=== PATIENT | female | born 1990 | race Caucasian/White ===

== ENCOUNTER 2016-08-04 15:05 | Emergency (ER) | payer OTHER ==
[2016-08-04 15:30] VITALS: BP 129/66
--- NOTE | 2016-08-04 16:06 | UC ---
UC General HPI - HPI Summary HPI Summary: complaint of feeling nauseated in the mornings breast tenderness for the past week fatigued more often LMP 06/24/16 good appetite and normal elimination - History of Current Complaint Chief Complaint: UCGeneralIllness Stated Complaint: N/V Time Seen by Provider: 08/04/16 16:01 Hx Obtained From: Patient - Allergy/Home Medications Allergies/Adverse Reactions: Allergies Allergy/AdvReac Type Severity Reaction Status Date / Time Adhesive Tape Allergy Rash Verified 08/04/16 15:30 PMH/Surg Hx/FS Hx/Imm Hx Previously Healthy: Yes Endocrine History Of: Denies: Diabetes, Thyroid Disease Cardiovascular History Of: Denies: Cardiac Disorders, Hypertension Respiratory History Of: Denies: COPD, Asthma GI/ History Of: Denies: Ulcer Neurological History Of: Reports: Migraine - Surgical History Surgical History: Yes Surgery Procedure, Year, and Place: WISDOM TEETH - Family History Known Family History: Positive: None - non contributory, Unknown Negative: Seizure Disorder - Social History Lives: With Family Alcohol Use: None Substance Use Type: None, Other Smoking Status (MU): Never Smoked Tobacco - Immunization History Most Recent Influenza Vaccination: 2012 Most Recent Tetanus Shot: 04/02/14 Most Recent Pneumonia Vaccination: n/a Review of Systems Constitutional: Fatigue Skin: Negative Eyes: Negative ENT: Negative Respiratory: Negative Cardiovascular: Negative Gastrointestinal: Other - nausea Genitourinary: Negative Motor: Negative Neurovascular: Negative Musculoskeletal: Negative Neurological: Negative Psychological: Negative All Other Systems Reviewed And Are Negative: Yes Physical Exam Triage Information Reviewed: Yes Appearance: No Pain Distress, Well-Nourished Vital Signs: Initial Vital Signs Temp 99.9 F 08/04/16 15:27 Pulse 77 08/04/16 15:27 Resp 18 08/04/16 15:27 BP 129/66 08/04/16 15:27 Pulse Ox 99 08/04/16 15:27 Vital Signs Reviewed: Yes Eye Exam: Normal Eyes: Positive: Conjunctiva Clear ENT: Positive: Normal ENT inspection Neck: Positive: No Lymphadenopathy Respiratory: Positive: Lungs clear, Normal breath sounds, No respiratory distress Cardiovascular: Positive: RRR, No Murmur, Pulses Normal Abdomen Description: Positive: Nontender, Soft Bowel Sounds: Positive: Present Musculoskeletal: Positive: No Edema Neurological: Positive: Alert Skin Exam: Normal Course/Dx - Course Course Of Treatment: POONAM 03/31/16. positive test. will rx for vitamin and refer to [facility] - Differential Dx - Multi-Symptom Provider Diagnoses: positive test Discharge - Discharge Plan Condition: Stable Disposition: HOME Prescriptions: Vit W/ Ferrous Fumara [ Complete] 1 tab PO DAILY #30 tab Patient Education Materials: (ED) Referrals: No Primary Care Phys,NOPCP [Primary Care Provider] - Ginette Anthony MD [Medical Doctor] - Additional Instructions: You have tested positive for start your vitamin please review your discharge instructions please contact your [facility] Dr Anthony for further medical care
== END 2016-08-04 16:12 | disposition home or self-care (01) ==
LOC: UCEAST 15:05
DX: Z34.00 Encounter for supervision of normal first pregnancy, unspecified trimester (principal)
CPT/HCPCS: 81025; 99212; G0463

== ENCOUNTER 2016-09-13 20:21 | Emergency (ER) | payer OTHER ==
--- NOTE | 2016-09-13 21:25 | ED ---
Abdominal Pain/Female - HPI Summary HPI Summary: 26 female presents complaining of lower left abdominal pain that radiates into her left flank and mid-pelvic region. Patient states she is ~3 months . She has not been seen by OB however was seen at [facility] where she found out she was via urine preg test back in August. Patient describes the pain to be sharp constant and effecting her daily activities. It started this morning upon waking up. She has not taken anything for it. Says the pain is worse with movement, walking and standing. But feels better when she lays down. Denies nausea, vomiting, hematuria, hematochezia, melena and vaginal discharge. States she has been urinating frequently but denies burning, itching and urgency. Admits to having trouble with bowel movements, her LBM being Tuesday, which was normal. She states she is passing gas however sits on the toilet and is unable have a bowel movement. No fever/chills, diarrhea or recent illness. Has been eating and drinking normally without issue. No PMHx. - History of Current Complaint Chief Complaint: EDAbdPain Stated Complaint: ABD PAIN/3 MONTHS Time Seen by Provider: 09/13/16 20:39 Hx Obtained From: Patient Hx Last Menstrual Period: 06/24/16 ?: Yes Onset/Duration: Sudden Onset Timing: Hours Severity Initially: Moderate Severity Currently: Severe Pain Intensity: 8 Pain Scale Used: 0-10 Numeric Location: Discrete At: LLQ Radiates to: Back - left, Flank - left, Other - suprapubic Character: Sharp Aggravating Factor(s): Movement Alleviating Factor(s): Position - laying down Associated Signs and Symptoms: Positive: Back Pain, Constipation. Negative: Diaphoresis, Fever, Blood in Stool, Urinary Symptoms, Decreased Appetite, Vaginal Bleeding, Vaginal Discharge, Nausea, Vomiting, Diarrhea Allergies/Adverse Reactions: Allergies Allergy/AdvReac Type Severity Reaction Status Date / Time Adhesive Tape Allergy Rash Verified 08/04/16 15:30 PMH/Surg Hx/FS Hx/Imm Hx Endocrine/Hematology History: Denies: Hx Diabetes, Hx Thyroid Disease Cardiovascular History: Denies: Hx Hypertension Respiratory History: Denies: Hx Asthma, Hx Chronic Obstructive Pulmonary Disease (COPD) GI History: Denies: Hx Ulcer Neurological History: Reports: Hx Migraine - Surgical History Surgery Procedure, Year, and Place: WISDOM TEETH Infectious Disease History: Yes Infectious Disease History: Reports: Hx of Known/Suspected MRSA - MRSA IN URINE Denies: Hx Hepatitis, Hx Human Immunodeficiency Virus (HIV), Traveled Outside the [place] in Last 30 Days - Family History Known Family History: Positive: None - non contributory, Unknown Negative: Seizure Disorder - Social History Alcohol Use: None Substance Use Type: Reports: None, Other Hx Tobacco Use: No Smoking Status (MU): Never Smoked Tobacco Review of Systems Constitutional: Negative Eyes: Negative ENT: Negative Cardiovascular: Negative Respiratory: Negative Positive: Abdominal Pain Positive: frequency Musculoskeletal: Negative Skin: Negative Neurological: Negative Psychological: Normal All Other Systems Reviewed And Are Negative: Yes Physical Exam Triage Information Reviewed: Yes Vital Signs On Initial Exam: Initial Vitals Temp Pulse Resp BP Pulse Ox 98.9 F 81 18 123/52 100 09/13/16 20:36 09/13/16 20:36 09/13/16 20:36 09/13/16 20:36 09/13/16 20:36 Vital Signs Reviewed: Yes Appearance: Positive: Well-Appearing, No Pain Distress, Well-Nourished Skin: Positive: Warm, Skin Color Reflects Adequate Perfusion, Dry Head/Face: Positive: Normal Head/Face Inspection Eyes: Positive: Conjunctiva Clear ENT: Positive: Hearing grossly normal, Pharynx normal Dental: Negative: Cervical Lymphadenopathy Neck: Positive: Supple, Nontender Respiratory/Lung Sounds: Positive: Clear to Auscultation, Breath Sounds Present Cardiovascular: Positive: Normal, RRR, Pulses are Symmetrical in both Upper and Lower Extremities Abdomen Description: Positive: No Organomegaly, Soft, CVA Tenderness (L), Other : - tednerness on palpation of LLQ and suprapubic. Negative: Bruit, CVA Tenderness (R), Distended, Guarding, McBurney's Point Tenderness, Peritoneal Signs Bowel Sounds: Positive: Present Pelvic Exam: Negative: active bleeding Musculoskeletal: Positive: Normal, Strength/ROM Intact Neurological: Positive: Normal, Sensory/Motor Intact, Alert, Oriented to Person Place, Time Psychiatric: Positive: Normal Diagnostics - Vital Signs Vital Signs Temp Pulse Resp BP Pulse Ox 09/13/16 20:36 98.9 F 81 18 123/52 100 - Laboratory Result Diagrams: 09/13/16 22:15 09/13/16 22:15 Lab Statement: Any lab studies that have been ordered have been reviewed, and results considered in the medical decision making process. - Ultrasound No standard instances Ultrasound Interpretation: No Acute Changes - IUP AT 11 WEEKS 6 DAYS. NO SONOGRAPHIC ABNORMALITY IS DETECTED. Ultrasound Interpretation Completed By: Radiologist Re-Evaluation - Re-Evaluation First Eval Re-Evaluation Time: 23:15 Change: Improved - patient states she feels better after medication and since arrival. pain has decreased Abdominal Pain Fem Course/Dx - Course Course Of Treatment: PE findings and history appear to be constipation. Abdominal US and basic lab work was ordered to confirm and viability. Urinalysis obtained. Rule-out etiologies of ectopic , diverticulitis, ovarian torsion, uinary tract infection etc. All labs were unremarkable. -0- 1 without any prior complications besides nausea. Given Tylenol and Metamucil to help with pain and constipation. Told to continue Metamucil at home as needed for constipation. - Diagnoses Differential Diagnosis: Positive: Constipation, Diverticulitis, Ectopic , , Urinary Tract Infection Provider Diagnoses: Constipation during in first trimester, Abdominal pain, left lower quadrant Discharge - Discharge Plan Condition: Stable Disposition: HOME Patient Education Materials: Constipation (ED), High Fiber Diet (ED) Referrals: No Primary Care Phys,NOPCP [Primary Care Provider] - [facility] [place] [facility]FERRAL [Outside] Additional Instructions: Be sure to eat a high fiber diet (foods with high fiber is attached) and plenty of fluids to avoid constipation. You can take Metamucil as needed for constipation. If symptoms worsen or new symptoms develop such as bleeding, increasing pain, fever/chills please seek medical attention promptly. Follow-up with PCP/OBGYN.
--- NOTE | 2016-09-13 21:54 | RAD ---
INDICATION: Early with abdominal pain COMPARISON: None TECHNIQUE: Transabdominal scans the pelvis were performed for limited evaluation FINDINGS: There is a single intrauterine gestation. cardiac activity is documented at 155 bpm. The crown-rump length corresponds to an 11 week 6 day gestation. The estimated date of confinement is March 31, 2017. The ovaries appear normal. The right ovary measures 3.0 x 1.7 x 1.4 cm and the left 3.6 x 2.0 x 1.2 cm. There are no findings of torsion. IMPRESSION: IUP AT 11 WEEKS 6 DAYS. NO SONOGRAPHIC ABNORMALITY IS DETECTED..
[2016-09-13 22:29] LABS: Hematocrit 39 % (35-47); Hemoglobin 13.6 g/dl (12.0-16.0); Mean Corpuscular HGB Conc 35 g/dl (31-36); Mean Corpuscular Hemoglobin 30 pg (27-31); Mean Corpuscular Volume 85 fL (80-97); Mean Platelet Volume 8 um3 (7.4-10.4); Red Blood Count 4.58 10^6/ul (4.0-5.4); Red Cell Distribution Width 14 % (10.5-15); White Blood Count 6.3 10^3/ul (3.5-10.8)
[2016-09-13] MEDS ORDERED: Acetaminophen TAB* 325 MG PO ONE (22:33)
[2016-09-13] MEDS ORDERED: Psyllium PAK PO ONE (22:33)
[2016-09-13 22:35] LABS: Urine Bacteria 1+ (Absent); Urine Bilirubin Negative (Negative); Urine Glucose Negative (Negative); Urine Nitrite Negative (Negative)
[2016-09-13 22:44] LABS: Albumin 3.8 g/dL (3.2-5.2); BUN/Creatinine Ratio 19.3 (8-20); C Reactive Protein 1.58 mg/L (< 5.00); Calcium 9.4 mg/dL (8.6-10.3); EGFR African American 166.2 (>60); EGFR Non-African American 129.2 (>60); Globulin 3.2 g/dL (2-4); Potassium 4.1 mmol/L (3.5-5.0); Total Bilirubin 0.4 mg/dL (0.2-1.0)
[2016-09-13 23:32] VITALS: BP 122/66
== END 2016-09-13 23:31 | disposition home or self-care (01) ==
LOC: ED 20:21
DX: R10.32 Left lower quadrant pain (principal); K59.00 Constipation, unspecified; Z34.90 Encounter for supervision of normal pregnancy, unspecified, unspecified trimester; Z3A.11 11 weeks gestation of pregnancy
CPT/HCPCS: 36415; 76815; 80053; 81003; 81015; 83690; 84702; 85025; 86140; 87086; 99282; A9270-GY

== ENCOUNTER 2017-03-19 23:34 | Inpatient (IN) | payer OTHER ==
[2017-03-20 00:01] LABS: Hematocrit 35 % (35-47); Hemoglobin 11.7 g/dl (12.0-16.0); Mean Corpuscular HGB Conc 33 g/dl (31-36); Mean Corpuscular Hemoglobin 27 pg (27-31); Mean Corpuscular Volume 81 fL (80-97); Mean Platelet Volume 11 um3 (7.4-10.4); Red Blood Count 4.33 10^6/ul (4.0-5.4); Red Cell Distribution Width 16 % (10.5-15); White Blood Count 8.1 10^3/ul (3.5-10.8)
[2017-03-20 00:05] LABS: Comments Flag Yes
[2017-03-20] MEDS ORDERED: Oxytocin in LR* 20 UNITS/1,000 ML BAG IVPB ONE (00:34)
[2017-03-20] MEDS ORDERED: Witch Hazel PAD* JAR TOPICAL PRN (01:15)
[2017-03-20] MEDS ORDERED: Dibucaine 1% 28.35 GM TUBE PR PRN (01:15)
[2017-03-20] MEDS ORDERED: Glycerin ADULT SUPP PR PRN (01:15)
[2017-03-20] MEDS ORDERED: Zolpidem TAB* 5 MG PO PRN (01:15)
[2017-03-20] MEDS ORDERED: Misoprostol TAB* 200 MCG PR ONE (01:16)
[2017-03-20] MEDS ORDERED: Oxytocin in LR* 20 UNITS/1,000 ML BAG IVPB SCH (02:00)
[2017-03-20] MEDS ORDERED: Ammonia Inhalant* 1 EA AMP ONE (02:52)
[2017-03-20] MEDS: Ibuprofen TAB* 600 MG PO PRN ×3 (04:22→16:16)
[2017-03-20] MEDS ORDERED: Simethicone CHEW TAB* 80 MG PO SCH (08:30)
[2017-03-20] MEDS: Docusate CAP* 100 MG PO SCH ×3 (10:19→20:05)
[2017-03-20] MEDS: Acetaminophen TAB* 325 MG PO PRN (20:05)
[2017-03-21] MEDS: Ibuprofen TAB* 600 MG PO PRN ×4 (02:13→23:49)
[2017-03-21] MEDS: Acetaminophen TAB* 325 MG PO PRN ×3 (02:13→21:34)
[2017-03-21 07:13] LABS: Hematocrit 24 % (35-47); Hemoglobin 7.8 g/dl (12.0-16.0); Mean Corpuscular HGB Conc 33 g/dl (31-36); Mean Corpuscular Hemoglobin 27 pg (27-31); Mean Corpuscular Volume 82 fL (80-97); Mean Platelet Volume 10 um3 (7.4-10.4); Red Blood Count 2.87 10^6/ul (4.0-5.4); Red Cell Distribution Width 16 % (10.5-15); White Blood Count 6.2 10^3/ul (3.5-10.8)
[2017-03-21 07:17] LABS: Add Diff/Slide Review? Slide Review Added; Comments Flag Yes
[2017-03-21] MEDS: Docusate CAP* 100 MG PO SCH ×3 (09:11→20:25)
[2017-03-21] MEDS: Ferrous Gluconate TAB* 324 MG TAB PO SCH ×2 (09:11→20:25)
[2017-03-21] MEDS ORDERED: RHO D Immune Globulin (HUMAN)* 300 MCG = 1,500 I.U. INJ IM ONE (21:05)
[2017-03-22] MEDS: Ibuprofen TAB* 600 MG PO PRN ×2 (06:16→12:54)
[2017-03-22 08:00] VITALS: BP 125/63
[2017-03-22] MEDS: Ferrous Gluconate TAB* 324 MG TAB PO SCH (10:53)
[2017-03-22] MEDS: Docusate CAP* 100 MG PO SCH (10:53)
== END 2017-03-22 12:58 | disposition home or self-care (01) | DRG 560 ==
LOC: MCHOBOUT 23:34 → MCHOB 23:55
PROVIDERS: ADMIT Obstetrics & Gynecology; ATTEND Obstetrics & Gynecology
PROC: 10E0XZZ Delivery of Products of Conception, External Approach (ICD-10-PCS; principal; 2017-03-20)
PROC: 10907ZC Drainage of Amniotic Fluid, Therapeutic from Products of Conception, Via Natural or Artificial Opening (ICD-10-PCS; 2017-03-20)
PROC: 0KQM0ZZ Repair Perineum Muscle, Open Approach (ICD-10-PCS; 2017-03-20)
DX: O60.23X0 Term delivery with preterm labor, third trimester, not applicable or unspecified (principal); O99.824 Streptococcus B carrier state complicating childbirth; O70.1 Second degree perineal laceration during delivery; Z3A.38 38 weeks gestation of pregnancy; Z37.0 Single live birth
CPT/HCPCS: 36415; 85025; 85027; 85060; 85461; 86850; 86900; 86901; A9270-GY; J2790

== ENCOUNTER 2017-05-05 07:48 | Day surgery (SDC) | payer OTHER ==
[~2017-05-05 07:48] MED LIST: Buffered Lidocaine 0.9% SYRIN* 5 ML/SYR SYRINGE INTRADERM ONE; Sodium Citrate/Citric Acid* 15 ML UDC PO ONE
[2017-05-05] MEDS ORDERED: Buffered Lidocaine 0.9% SYRIN* 5 ML/SYR SYRINGE ONE (08:02)
[2017-05-05] MEDS ORDERED: Sodium Citrate/Citric Acid* 15 ML UDC ONE (08:02)
[2017-05-05] MEDS ORDERED: Cisatracurium* 2 MG/ML MDV 5 ML ONE (08:52)
[2017-05-05] MEDS ORDERED: Lidocaine 2% PF * 5 ML VIAL ONE (08:52)
[2017-05-05] MEDS ORDERED: Propofol* 10 MG/ML 20 ML BTL IV PUSH ONE (08:52)
[2017-05-05] MEDS ORDERED: fentaNYL* 50 MCG/ML 2 ML VIAL (100 MCG VIAL) ONE (08:53)
[2017-05-05] MEDS ORDERED: Bupivacaine 0.25% SDV* 30 ML ONE (08:53)
[2017-05-05] MEDS ORDERED: Dexamethasone IV* 4 MG/ML 1 ML (4 MG) ONE (09:19)
[2017-05-05] MEDS ORDERED: Glycopyrrolate IV* 0.2 MG/ML 1 ML VIAL ONE (09:25)
[2017-05-05] MEDS ORDERED: Neostigmine Methylsulfate* 2 MG/2 ML SYRINGE ONE (09:25)
[2017-05-05] MEDS ORDERED: Ondansetron INJ* 2 MG/ML VIAL IV PRN (09:27)
[2017-05-05] MEDS ORDERED: fentaNYL* 50 MCG/ML 2 ML VIAL (100 MCG VIAL) IV PRN (09:27)
[2017-05-05] MEDS ORDERED: oxyCODONE/Acetamin 5/325 MG* TAB ONE ×2 (10:24→13:06)
[2017-05-05 13:52] VITALS: BP 118/63
--- NOTE | 2017-05-05 16:58 | OP ---
DATE OF OPERATION: 05/05/17 [facility] DATE OF : 89 SURGEON: Adelaide Sterling MD ANESTHESIOLOGIST: Kasi Jenkins DO ANESTHESIA: General endotracheal. PRE-OP DIAGNOSIS: Satisfied parity. POST-OP DIAGNOSIS: Satisfied parity. OPERATIVE PROCEDURE: Laparoscopic bilateral tubal ligation with bipolar. INDICATIONS: The patient is a 26-year-old, 2, para 2, approximately 2 months , status post her second vaginal delivery. The patient had expressed a strong desire for permanent sterilization during her and signed the sterilization consent for Medicaid. She was extensively counseled regarding the procedure as well as her other long-term contraception options and she desired to proceed. Consent was signed. ESTIMATED BLOOD LOSS: 50 cc. URINE OUTPUT: 50 cc. IV FLUIDS: 800 cc lactated Ringer's. MATERIALS TO LAB: None. FINDINGS: Normal-appearing pelvis with normal uterus, fallopian tubes, ovaries , and appendix. There appeared to be good coagulation of over 50% of the fallopian tube on both sides. Of note, the Hulka tenaculum that was placed into the cervix appeared to initiate some significant bleeding from inside the canal. This seemed to improve with some uterine pressure, but virtually all of the estimated blood loss was from the cervical bleeding. DESCRIPTION OF PROCEDURE: The risks, benefits, and alternatives were described to the patient, and informed consent was obtained. The patient was taken to the operating room with IV running where general anesthesia was induced and found to be adequate. The patient was prepped and draped in the normal sterile fashion in the low lithotomy position in [facility]. A time-out was performed. The bladder was emptied. A bivalve speculum was placed in the vagina and a Hulka tenaculum was easily placed through the cervix into the uterus. The speculum was then removed. Attention was then turned to the abdomen. 0.25% Marcaine was then injected into the skin of the umbilicus as well as 2-cm above the pubic symphysis. A 5 mm skin incision was made with a scalpel in the umbilicus. A bladeless 5mm trocar was then inserted through the incision and into the peritoneal cavity under direct visualization without difficulty. The skin was elevated using penetrating towel clamps. Once the trocar was in the abdominal cavity, the abdomen was insufflated with carbon dioxide gas to a maximum pressure of 15 mmHg. Using the camera, the area below the trocar placement was carefully inspected and there was no evidence of trauma or bleeding. The patient was placed in the Trendelenburg position. A second incision 5mm incision was placed 2 cm above the pubic symphysis in a transverse fashion. A 5mm blunt trocar was also placed through this incision and into the abdominal cavity without difficulty. Using the Hulka tenaculum for manipulation , the uterus was elevated and well visualized. The structures appeared normal. The Kleppinger bipolar device was prepared and coated with a nonstick gel. The Kleppinger was then placed on the patient's right fallopian tube in the mid isthmic portion and at least 4cm of the tube was fully coagulated with resistance observed. The same was then performed on the patient's left side, again without difficulty and with excellent hemostasis. The case was then completed. The trocars were removed from the abdomen and the gas was allowed to escape. The skin was reapproximated using 4-0 Monocryl in a subcuticular stitch, and the incisions were then overlaid with Dermaflex skin adhesive. The tenaculum was then removed from the cervix as well. It was noted that the patient had a fairly significant amount of bleeding from the cervix compared to the usual. The speculum was replaced and the bleeding was coming from the cervical os, not the tenaculum site. Pressure was held with a sponge stick for a couple minutes, and bleeding slowed significantly. The speculum was then removed. The patient was returned to the supine position and allowed to awaken. The patient tolerated the procedure well. Sponge, lap, and needle counts were correct x2. [id number]/[facility] #: [id number] SHON
== END 2017-05-05 13:49 | disposition home or self-care (01) ==
LOC: OR 07:48
PROVIDERS: ATTEND Obstetrics & Gynecology
DX: Z30.2 Encounter for sterilization (principal)
CPT/HCPCS: 81025; A9270-GY; J1100; J2704; J3010

== ENCOUNTER 2019-03-03 20:41 | Emergency (ER) | payer OTHER ==
[2019-03-03 20:57] VITALS: BP 110/68
--- NOTE | 2019-03-03 21:17 | UC ---
Ear Complaint HPI - HPI Summary HPI Summary: right ear pain worsening over past 7-10 days - History of Current Complaint Chief Complaint: UCEar Stated Complaint: EAR PAIN Time Seen by Provider: 03/03/19 21:05 Hx Obtained From: Patient Hx Last Menstrual Period: tubal ligation ?: No Onset/Duration: Gradual Onset, Lasting Days, Still Present Pain Intensity: 8 Pain Scale Used: 0-10 Numeric Aggravating Factors: Nothing Alleviating Factors: Nothing - Allergies/Home Medications Allergies/Adverse Reactions: Allergies Allergy/AdvReac Type Severity Reaction Status Date / Time Adhesive Tape Allergy Rash Verified 03/03/19 20:57 PMH/Surg Hx/FS Hx/Imm Hx Previously Healthy: Yes - Surgical History Surgical History: Yes Surgery Procedure, Year, and Place: WISDOM TEETH - Family History Known Family History: Positive: None - non contributory, Unknown Negative: Seizure Disorder - Social History Occupation: Works From/At Home Lives: With Family Alcohol Use: None Substance Use Type: None Smoking Status (MU): Never Smoked Tobacco - Immunization History Most Recent Influenza Vaccination: 2012 Most Recent Tetanus Shot: 04/02/14 Most Recent Pneumonia Vaccination: n/a Review of Systems All Other Systems Reviewed And Are Negative: Yes Constitutional: Positive: Negative Skin: Positive: Negative Eyes: Positive: Negative ENT: Positive: Ear Ache - right Respiratory: Positive: Negative Cardiovascular: Positive: Negative Gastrointestinal: Positive: Negative Genitourinary: Positive: Negative Motor: Positive: Negative Neurovascular: Positive: Negative Musculoskeletal: Positive: Negative Neurological: Positive: Negative Psychological: Positive: Negative Is Patient Immunocompromised?: No Physical Exam Triage Information Reviewed: Yes Appearance: Well-Appearing, No Pain Distress, Well-Nourished Vital Signs: Initial Vital Signs Temp 98.7 F 03/03/19 20:55 Pulse 65 03/03/19 20:55 Resp 18 03/03/19 20:55 BP 110/68 03/03/19 20:55 Pulse Ox 100 03/03/19 20:55 Vital Signs Reviewed: Yes Eye Exam: Normal ENT Exam: Normal ENT: Positive: Normal ENT inspection, Hearing grossly normal, Pharynx normal, TMs normal, Uvula midline, Other - right canal red. Negative: Nasal congestion , Nasal drainage, Dental tenderness, Sinus tenderness Dental Exam: Normal Neck exam: Normal Neck: Positive: Supple, Nontender Respiratory Exam: Normal Respiratory: Positive: Chest non-tender, Lungs clear, Normal breath sounds, No respiratory distress, No accessory muscle use Cardiovascular Exam: Normal Cardiovascular: Positive: RRR, No Murmur, Pulses Normal, Brisk Capillary Refill Musculoskeletal Exam: Normal Musculoskeletal: Positive: Strength Intact, ROM Intact, No Edema Neurological Exam: Normal Neurological: Positive: Alert Psychological Exam: Normal Skin Exam: Normal Ear Complaint Course/Dx - Course Course Of Treatment: tylenol, ibuprofen eardrops follow with pcp prn - Differential Dx/Diagnosis Provider Diagnosis: Otitis externa of right ear Discharge - Sign-Out/Discharge Documenting (check all that apply): Patient Departure All imaging exams completed and their final reports reviewed: No Studies - Discharge Plan Condition: Stable Disposition: HOME Prescriptions: Neomyc/Polym/HC 1% OTIC SUSP* [Cortisporin Otic Susp 1%*] 10 drop RIGHT EAR TID 7 Days #1 btl Patient Education Materials: Ibuprofen (By mouth), Otitis Externa (ED), How to Use Ear Drops (ED) Referrals: [facility] [Outside] - If Needed - Billing Disposition and Condition Condition: STABLE Disposition: Home
[2019-03-03] MEDS ORDERED: Neomyc/Polym/HC 1% OTIC SUSP* **OTIC RIGHT EAR ONE (21:18)
== END 2019-03-03 21:36 | disposition home or self-care (01) ==
LOC: UCEAST 20:41
DX: H60.91 Unspecified otitis externa, right ear (principal)
CPT/HCPCS: 99212; A9270-GY; G0463

== ENCOUNTER 2019-07-12 12:32 | Emergency (ER) | payer OTHER ==
[2019-07-12 12:48] VITALS: BP 120/68
--- NOTE | 2019-07-12 13:36 | UC ---
Skin Complaint HPI - HPI Summary HPI Summary: 29-year-old female presents with complaints of pain, redness, and swelling of the nail fold of her right ring finger. States she awoke this morning with the symptoms. Unknown injury. No history of MRSA. Denies fever, chills, joint pain, or drainage. - History of Current Complaint Chief Complaint: UCSkin Time Seen by Provider: 07/12/19 13:03 Stated Complaint: FINGER INJURY Hx Obtained From: Patient Hx Last Menstrual Period: 07/08/19 Pain Intensity: 10 - Allergy/Home Medications Allergies/Adverse Reactions: Allergies Allergy/AdvReac Type Severity Reaction Status Date / Time Adhesive Tape Allergy Rash Verified 07/12/19 12:48 PMH/Surg Hx/FS Hx/Imm Hx Previously Healthy: Yes - Denies significant PMH - Surgical History Surgical History: Yes Surgery Procedure, Year, and Place: WISDOM TEETH - Family History Known Family History: Positive: Non-Contributory - Social History Occupation: Works From/At Home Lives: With Family Alcohol Use: None Substance Use Type: None Smoking Status (MU): Never Smoked Tobacco - Immunization History Most Recent Influenza Vaccination: 2012 Most Recent Tetanus Shot: 04/02/14 Most Recent Pneumonia Vaccination: n/a Review of Systems All Other Systems Reviewed And Are Negative: Yes Constitutional: Negative: Fever, Chills Skin: Positive: Other - See HPI Respiratory: Positive: Negative Cardiovascular: Positive: Negative Gastrointestinal: Positive: Negative Genitourinary: Positive: Negative Motor: Negative: Weakness Neurovascular: Negative: Decreased Sensation Musculoskeletal: Negative: Decreased ROM Neurological: Positive: Negative Is Patient Immunocompromised?: No Physical Exam - Summary Physical Exam Summary: GENERAL APPEARANCE: Well developed, well nourished, alert and cooperative, and appears to be in no acute distress. CARDIAC: Normal S1 and S2. No S3, S4 or murmurs. Rhythm is regular. There is no peripheral edema, cyanosis or pallor. Extremities are warm and well perfused. Capillary refill is less than 2 seconds. Peripheral pulses intact. LUNGS: Clear to auscultation without rales, rhonchi, wheezing or diminished breath sounds. ABDOMEN: Positive bowel sounds. Soft, nondistended, nontender. No guarding or rebound. No masses or hepatosplenomegally. MUSKULOSKELETAL: ROM intact to all extremities. No joint erythema or tenderness. Normal muscular development. Normal gait. EXTREMITIES: Erythema, edema, and fluctuance of the lateral and proximal nailfold of the right ring finger. SKIN: Skin normal color, texture and turgor. Triage Information Reviewed: Yes Vital Signs: Initial Vital Signs Temp 98 F 07/12/19 12:45 Pulse 89 07/12/19 12:45 Resp 17 07/12/19 12:45 BP 120/68 07/12/19 12:45 Pulse Ox 100 07/12/19 12:45 Vital Signs Reviewed: Yes Procedures - Procedure Summary Procedure Summary: PROCEDURE NOTE: Incision and drainage of paronychia of the the right ring finger with digital block PROCEDURE: Informed consent was obtained and timeout protocol was performed prior to initiating the procedure. A digital block of the finger was performed and good anesthesia achieved using a total of 4 ml 1% lidocaine without epinephrine. A small incision was made along the lateral nailfold using a #11 blade and the purulent material expressed. A culture was obtained and sent. A dressing was then applied by the RN. Bleeding was minimal. The patient tolerated the procedure well without complications. Standard post- procedure care is explained and return precautions were given. Course/Dx - Course Course Of Treatment: 29-year-old female presents with complaints of pain, redness, and swelling of the nail fold of her right ring finger. States she awoke this morning with the symptoms. Unknown injury. No history of MRSA. Denies fever, chills, joint pain, or drainage. Afebrile. VSS. Patient had erythema, edema, and fluctuance of the lateral and proximal nailfold of the right ring finger. A digital block was performed, good anesthesia achieved, and an incision and drainage of the paronychia was performed. A culture was sent. We'll place the patient on cephalexin 500 mg 3 times a day 5 days and have her continue to do soaks 3-4 times a day. She is to return here or with her primary care provider in 3 days if symptoms are not improving. Anticipatory guidance and warning symptoms were reviewed with the patient. Verbalizes understanding and agrees with plan of care. - Differential Diagnoses - Skin Complaint Differential Diagnoses: Abscess, Cellulitis, MRSA - Diagnoses Provider Diagnosis: Paronychia of right ring finger Discharge ED - Sign-Out/Discharge Documenting (check all that apply): Patient Departure All imaging exams completed and their final reports reviewed: No Studies - Discharge Plan Condition: Stable Disposition: HOME Prescriptions: cephALEXin [Keflex] 500 mg PO TID #15 capsule Patient Education Materials: Paronychia (ED) Referrals: No Primary Care Phys,NOPCP [Primary Care Provider] - Additional Instructions: You had an infection of the nail fold called a paronychia which we opened and drained today. We will also start you on an antibiotic to treat for the infection. Take cephalexin 500 mg 1 capsule 3 times a day for 5 days. Soak your finger in a warm water and Epsom salt solution 3-4 times a day. Keep the wound clean with a mild soap and water and covered with a bandage. Apply a small amount of an antibiotic ointment and cover with a bandaid. This should be performed twice a day or any time the dressing becomes wet or soiled. We performed a digital block in the clinic today. The numbing effect should last for approximately 3-4 hours. Take acetaminophen (Tylenol) or ibuprofen (Advil, Motrin) according to directions as needed for pain. Return here or follow-up with your primary care provider in 3 days if symptoms are not improving. Seek immediate medical attention in the emergency room if you develop a fever greater than 100.5 F, redness that rapidly spreads, increased swelling of the finger, or any worsening of symptoms. - Billing Disposition and Condition Condition: STABLE Disposition: Home
[2019-07-12] MEDS ORDERED: Lidocaine 1% MPF ** 5 ML VIAL INJ ONE (13:44)
--- NOTE | 2019-07-12 21:16 | UC ---
- Progress Note Progress Note: Wound culture results show S. Aureus positive, MRSA positive. Patient will need to stop cephalexin and start Bactrim DS 1 tab BID x 7 days. Nursing to contact patient with culture results and change in plan of care. Course/Dx - Diagnoses Provider Diagnoses: Paronychia of right ring finger Discharge ED - Sign-Out/Discharge Documenting (check all that apply): Post-Discharge Follow Up All imaging exams completed and their final reports reviewed: No Studies - Discharge Plan Condition: Stable Disposition: HOME Prescriptions: cephALEXin [Keflex] 500 mg PO TID #15 capsule Patient Education Materials: Paronychia (ED) Referrals: No Primary Care Phys,NOPCP [Primary Care Provider] - Additional Instructions: You had an infection of the nail fold called a paronychia which we opened and drained today. We will also start you on an antibiotic to treat for the infection. Take cephalexin 500 mg 1 capsule 3 times a day for 5 days. Soak your finger in a warm water and Epsom salt solution 3-4 times a day. Keep the wound clean with a mild soap and water and covered with a bandage. Apply a small amount of an antibiotic ointment and cover with a bandaid. This should be performed twice a day or any time the dressing becomes wet or soiled. We performed a digital block in the clinic today. The numbing effect should last for approximately 3-4 hours. Take acetaminophen (Tylenol) or ibuprofen (Advil, Motrin) according to directions as needed for pain. Return here or follow-up with your primary care provider in 3 days if symptoms are not improving. Seek immediate medical attention in the emergency room if you develop a fever greater than 100.5 F, redness that rapidly spreads, increased swelling of the finger, or any worsening of symptoms. - Billing Disposition and Condition Condition: STABLE Disposition: Home
--- NOTE | 2019-07-14 16:46 | UC ---
- Progress Note Progress Note: c&s returned MRSA resistant to Bactrim-call patient if symptoms have not completely resolved change to clindamycin Course/Dx - Diagnoses Provider Diagnoses: Paronychia of right ring finger Discharge ED - Sign-Out/Discharge Documenting (check all that apply): Post-Discharge Follow Up All imaging exams completed and their final reports reviewed: No Studies - Discharge Plan Condition: Stable Disposition: HOME Prescriptions: cephALEXin [Keflex] 500 mg PO TID #15 capsule Sulfamethox/Trimethoprim DS* [Bactrim DS 800/160 TAB*] 1 tab PO BID 7 Days #14 tab Patient Education Materials: Paronychia (ED) Referrals: No Primary Care Phys,NOPCP [Primary Care Provider] - Additional Instructions: You had an infection of the nail fold called a paronychia which we opened and drained today. We will also start you on an antibiotic to treat for the infection. Take cephalexin 500 mg 1 capsule 3 times a day for 5 days. Soak your finger in a warm water and Epsom salt solution 3-4 times a day. Keep the wound clean with a mild soap and water and covered with a bandage. Apply a small amount of an antibiotic ointment and cover with a bandaid. This should be performed twice a day or any time the dressing becomes wet or soiled. We performed a digital block in the clinic today. The numbing effect should last for approximately 3-4 hours. Take acetaminophen (Tylenol) or ibuprofen (Advil, Motrin) according to directions as needed for pain. Return here or follow-up with your primary care provider in 3 days if symptoms are not improving. Seek immediate medical attention in the emergency room if you develop a fever greater than 100.5 F, redness that rapidly spreads, increased swelling of the finger, or any worsening of symptoms. - Billing Disposition and Condition Condition: STABLE Disposition: Home
== END 2019-07-12 14:17 | disposition home or self-care (01) ==
LOC: UCEAST 12:32
DX: L03.011 Cellulitis of right finger (principal); B95.62 Methicillin resistant Staphylococcus aureus infection as the cause of diseases classified elsewhere; Z91.09 Other allergy status, other than to drugs and biological substances
CPT/HCPCS: 10060; 11765; 87070; 87077; 87186; 87205; 87640; 87641; 99212; G0463

== ENCOUNTER 2019-09-03 05:44 | Emergency (ER) | payer OTHER ==
[2019-09-03] MEDS ORDERED: Ketorolac INJ* 30 MG/ML 1 ML VIAL IM ONE (06:55)
--- NOTE | 2019-09-03 07:23 | ED ---
Back Pain - HPI Summary HPI Summary: 29 year old F arriving via private car complains of intermittent left lower posterior rib pain since yesterday 09/02/2019. Patient states she was unable to sleep last night due to the pain. No abdominal pain or hematuria. No Hx kidney stones. Patient states she has tried using heat pad and taking Tylenol with no relief. Patient additionally complains of cough for weeks. Was seen at [facility] for the cough where she did not have CXR done and was told that her cough was viral. Symptoms rated 10/10 in severity. Symptoms aggravated by coughing. Symptoms alleviated by nothing. Denies dysuria, hx kidney stones. Medications reviewed. Allergies noted. - History of Current Complaint Chief Complaint: EDBackInjuryPain Stated Complaint: BACK PAIN PER PT Time Seen by Provider: 09/03/19 06:54 Hx Obtained From: Patient Onset/Duration: Lasting Days - yesterday 09/02/2019, Still Present Onset/Duration: Started Days Ago - yesterday 09/03/2019, Still Present Back Pain Location: Is Discrete @ - left lower posterior rib Severity Currently: Severe Pain Intensity: 10 Pain Scale Used: 0-10 Numeric Aggravating Symptom(s): Cough Alleviating Symptom(s): Nothing Associated Signs And Symptoms: Positive: Negative - hematuria, Other - cough. Negative: Abdominal Pain - Allergies/Home Medications Allergies/Adverse Reactions: Allergies Allergy/AdvReac Type Severity Reaction Status Date / Time Adhesive Tape Allergy Rash Verified 09/03/19 05:48 PMH/Surg Hx/FS Hx/Imm Hx Endocrine/Hematology History: Reports: Hx Anemia - slightly while Denies: Hx Diabetes, Hx Thyroid Disease Cardiovascular History: Denies: Hx Hypertension Respiratory History: Denies: Hx Asthma, Hx Chronic Obstructive Pulmonary Disease (COPD) GI History: Denies: Hx Ulcer Neurological History: Reports: Hx Migraine - Surgical History Surgery Procedure, Year, and Place: WISDOM TEETH Hx Anesthesia Reactions: No - never had surgery Infectious Disease History: No Infectious Disease History: Reports: Hx of Known/Suspected MRSA - MRSA IN URINE Denies: Hx Hepatitis, Hx Human Immunodeficiency Virus (HIV), Traveled Outside the [place] in Last 30 Days - Family History Known Family History: Positive: Unknown - patient is adopted - Social History Alcohol Use: None Substance Use Type: Reports: None Hx Tobacco Use: No Smoking Status (MU): Never Smoked Tobacco Review of Systems Positive: Cough Negative: Abdominal Pain Negative: hematuria Positive: Other - left lower posterior rib pain All Other Systems Reviewed And Are Negative: Yes Physical Exam - Summary Physical Exam Summary: Constitutional: Well-developed, Well-nourished, Alert. (-) Distressed Skin: Warm, Dry HENT: Normocephalic; Atraumatic Eyes: Conjunctiva normal Neck: Musculoskeletal ROM normal neck. (-) JVD, (-) Stridor, (-) Nuchal rigidity Cardio: Rhythm regular, rate normal, Heart sounds normal; Intact distal pulses; Radial pulses are 2+ and symmetric. (-) Murmur Pulmonary/Chest wall: Effort normal. (-) Respiratory distress, (-) Wheezes, (-) Rales. Bilateral rhonchi Abd: Soft, (-) tenderness, (-) Distension, (-) Guarding, (-) Rebound Musculoskeletal: (-) Edema. Left lower posterior rib tenderness Lymph: (-) Cervical adenopathy Neuro: Alert, Oriented x3 Psych: Mood and affect Normal Triage Information Reviewed: Yes Vital Signs On Initial Exam: Initial Vitals Temp Pulse Resp BP Pulse Ox 98.9 F 77 16 122/73 99 09/03/19 05:45 09/03/19 05:45 09/03/19 05:45 09/03/19 05:45 09/03/19 05:45 Vital Signs Reviewed: Yes Procedures - Sedation Patient Received Moderate/Deep Sedation with Procedure: No Diagnostics - Vital Signs Vital Signs Temp Pulse Resp BP Pulse Ox 09/03/19 05:45 98.9 F 77 16 122/73 99 - Laboratory Result Diagrams: 09/03/19 07:36 09/03/19 07:36 Lab Statement: Any lab studies that have been ordered have been reviewed, and results considered in the medical decision making process. - Radiology CXR Radiology Interpretation Completed By: Radiologist Summary of Radiographic Findings: NO EVIDENCE FOR ACTIVE CARDIOPULMONARY DISEASE. ED physician has reviewed this imaging report. Re-Evaluation - Re-Evaluation First Eval Re-Evaluation Time: 09:08 Change: Improved Comment: Patient is feeling better. Patient states she is on her period. She has no urinary sx. She is agreeable to discharge Back Pain Course/Dx - Course Course Of Treatment: 29 y/o F w recent URI p/w cough and L sided rib pain w cough. - CXR w/o PNA. TTP lower post L ribs. No flank tenderness. -given toradol, lidocaine patch for symptoms. Will also call in motrin/flexeril for pain. Suspect MSK pain 2/2 cough. - defer abx for UA. Patient on menstrual cycle. Have low suspicion renal pathology - Diagnoses Provider Diagnoses: Costochondritis Discharge ED - Sign-Out/Discharge Documenting (check all that apply): Patient Departure - Discharge Plan Condition: Stable Disposition: HOME Prescriptions: Cyclobenzaprine TAB* [Flexeril 10 MG TAB*] 10 mg PO TID PRN 4 Days #12 tab PRN Reason: Pain - Moderate Ibuprofen TAB* [Motrin TAB* 800 MG] 800 mg PO TID PRN 10 Days #30 tab PRN Reason: Pain - Moderate Patient Education Materials: Costochondritis (ED) Referrals: [facility] [Outside] Additional Instructions: You were seen in the emergency department for pain and coughing. Your x-ray did not show any pneumonia. Please take Flexeril and Motrin as needed for pain. If any studies were not completed at the time of discharge you will be called with the relevant results. Please follow up with your primary care doctor in next 2-3 days and return to emergency department for worsening or concerning symptoms. It was a pleasure taking care of you today. - Billing Disposition and Condition Condition: STABLE Disposition: Home - Attestation Statements Document Initiated by Tresa: Yes Documenting Scribe: Dagmar Montero Provider For Whom Tresa is Documenting (Include Credential): Eduardo Morataya MD Scribe Attestation: I, Dagmar Montero, scribed for Eduardo Morataya MD on 09/03/19 at 0946. Scribe Documentation Reviewed: Yes Provider Attestation: The documentation as recorded by the Dagmar bailey accurately reflects the service I personally performed and the decisions made by me, Eduardo Morataya MD Status of Scribdaria Document: Viewed
[2019-09-03 07:45] LABS: ABS Eosinophils 0.4 10^3/ul (0-0.6); ABS Lymphocytes 1.1 10^3/ul (1.0-4.8); ABS Monocytes 0.5 10^3/ul (0-0.8); ABS Neutrophils 3.5 10^3/ul (1.5-7.7); Eosinophil % 7.9 %; Hematocrit 41 % (35-47); Hemoglobin 14.4 g/dL (12.0-16.0); Lymphocyte % 20.3 %; Mean Corpuscular HGB Conc 35 g/dL (31-36); Mean Corpuscular Hemoglobin 32 pg (27-31); Mean Corpuscular Volume 90 fL (80-97); Mean Platelet Volume 8.9 fL (7.4-10.4); Platelet Count 154 10^3/uL (150-450); Red Blood Count 4.55 10^6 /uL (3.70-4.87); Red Cell Distribution Width 12 % (10-15); White Blood Count 5.5 10^3/uL (3.5-10.8)
[2019-09-03 08:02] LABS: ALT 12 U/L (7-52); AST 16 U/L (13-39); Albumin 4.4 g/dL (3.2-5.2); Albumin/Globulin Ratio 1.6 (1-3); Alkaline Phosphatase 54 U/L (34-104); Anion Gap 6 mmol/L (2-11); BUN/Creatinine Ratio 16.7 (8-20); Blood Urea Nitrogen 14 mg/dL (6-24); CO2 Carbon Dioxide 26 mmol/L (22-32); Calcium 8.8 mg/dL (8.6-10.3); Chloride 105 mmol/L (101-111); EGFR African American 97.7 (>60); EGFR Non-African American 80.7 (>60); Globulin 2.8 g/dL (2-4); Glucose 116 mg/dL (70-100); Potassium 4.1 mmol/L (3.5-5.0); Sodium 137 mmol/L (135-145); Total Protein 7.2 g/dL (6.4-8.9)
[2019-09-03 08:10] LABS: HCG Pregnancy < 0.60 mIU/mL
[2019-09-03] MEDS ORDERED: Lidocaine PATCH 5%* 1 PATCH TRANSDERM SCH (09:00)
[2019-09-03 09:03] LABS: Urine Appearance Cloudy; Urine Bacteria Absent (Absent); Urine Bilirubin Negative (Negative); Urine Blood 3+ (Negative); Urine Color Yellow; Urine Glucose Negative (Negative); Urine Ketones Negative (Negative); Urine Nitrite Negative (Negative); Urine Protein 1+(30 mg/dL) (Negative); Urine Red Blood Cell 3+(>10/hpf) (Absent); Urine Specific Gravity 1.021 (1.010-1.030); Urine Squamous Epithelial Cell Present (Absent); Urine Urobilinogen Negative (Negative); Urine White Blood Cell 3+(>20/hpf) (Absent)
[2019-09-03 09:25] VITALS: BP 118/78
[2019-09-03] MEDS ORDERED: Lidocaine Patch REMOVE* 1 NOTE MISC SCH (21:00)
== END 2019-09-03 09:23 | disposition home or self-care (01) ==
LOC: ED 05:44
DX: M94.0 Chondrocostal junction syndrome [Tietze] (principal); D64.9 Anemia, unspecified
CPT/HCPCS: 36415; 71046; 80053; 81003; 81015; 84702; 85025; 87077; 87086; 96372; 99282; A9270-GY; J1885